=== PATIENT | female | born 1945 | race Caucasian/White ===

== ENCOUNTER 2019-12-30 13:47 | Inpatient (IN) ==
[2019-12-30] MEDS ORDERED: (Dulaglutide [Trulicity] 1.5 MG) SQ SCH (17:15)
[2019-12-30] MEDS ORDERED: *HR* Warfarin 5 MG TABLET PO SCH (19:15)
[2019-12-30] MEDS: *HR* Enoxaparin 100 MG/ML SYRINGE SQ SCH (20:56)
[2019-12-30] MEDS: Cefdinir 300 MG CAPSULE PO SCH (20:57)
[2019-12-30] MEDS: Cholecalciferol (D-3) 1,000 UNIT (25MCG) TABLET PO SCH (20:58)
[2019-12-30] MEDS ORDERED: Insulin DETEMIR 100 UNIT/ML per UNIT SQ ONE (21:00)
[2019-12-30] MEDS: OXcarbazepine 150 MG TABLET PO SCH (21:01)
[2019-12-31] MEDS: *HR* Enoxaparin 100 MG/ML SYRINGE SQ SCH ×2 (05:29→17:11)
[2019-12-31 06:00] LABS: Basophils # 0.1 K/mcL (0.0-0.2); Basophils % 0.6 %; Eosinophils # 0.4 K/mcL (0.0-0.6); Eosinophils % 4.1 %; Hematocrit 32.4 % (35.3-44.9); Hemoglobin 10.4 g/dL (11.5-15.4); Immature Granulocytes % 0.7 % (0-4); Lymphocytes # 2.1 K/mcL (0.6-4.6); Lymphocytes % 23.9 %; Mean Corpuscular HGB Conc 32.1 g/dL (31.6-35.5); Mean Corpuscular Hemoglobin 30.3 pg (28.0-33.3); Mean Corpuscular Volume 94.5 fL (83.0-100.0); Mean Platelet Volume 9.2 fL (9.4-12.4); Monocytes # 0.8 K/mcL (0.0-1.3); Monocytes % 9.6 %; Neutrophils # 5.4 K/mcL (1.6-8.9); Platelet Count 303 K/mcL (140-400); Red Blood Count 3.43 M/mcL (3.82-4.97); Red Cell Distribution Width 15.9 % (11.5-14.5); Segmented Neutrophils % 61.1 %; White Blood Count 8.8 K/mcL (4.3-11.1)
[2019-12-31 06:10] LABS: Albumin 3.5 g/dL (3.5-5.7); Bilirubin,Total 0.4 mg/dL (0.3-1.0); Calcium 9.5 mg/dL (8.6-10.3); Globulin 3.5 g/dL (2.4-3.5); Magnesium 2.3 mg/dL (1.6-2.6); Potassium 4.2 mEq/L (3.5-5.1)
[2019-12-31] MEDS: *HR* Metformin 500 MG TABLET PO SCH (08:19)
[2019-12-31] MEDS: DilTIAZem CD (24hr) 180 MG CAP.ER.24H PO SCH (08:19)
[2019-12-31] MEDS: Aspirin Enteric Coated 81 MG Tablet PO SCH (08:19)
[2019-12-31] MEDS: Multivit/Ca/Min/Fe/FA 1 TAB TABLET PO SCH (08:19)
[2019-12-31] MEDS: Metoprolol XL (24 HR) Succ 50 MG TAB.ER.24H PO SCH (08:20)
[2019-12-31] MEDS: Cefdinir 300 MG CAPSULE PO SCH ×2 (08:20→20:19)
[2019-12-31] MEDS: Spironolactone 25 MG TABLET PO SCH (08:20)
[2019-12-31] MEDS: Cholecalciferol (D-3) 1,000 UNIT (25MCG) TABLET PO SCH ×2 (08:21→20:20)
[2019-12-31] MEDS: OXcarbazepine 150 MG TABLET PO SCH ×2 (08:21→20:19)
[2019-12-31] MEDS ORDERED: INSULIN DEGLUDEC 76 UNIT SQ SCH (09:00)
[2019-12-31] MEDS ORDERED: Dextrose Gel 15 GM/37.5 ML TUBE PO PRN ×2 (09:59)
[2019-12-31] MEDS ORDERED: *HR* Dextrose 50 % in Water (Syg) 50 ML SYRINGE IVP PRN (09:59)
[2019-12-31] MEDS ORDERED: D5% in Water 1,000 ML IVC PRN (09:59)
[2019-12-31] MEDS ORDERED: Insulin DETEMIR 100 UNIT/ML per UNIT SQ ONE (10:15)
[2019-12-31 12:04] LABS: INR 1.7; Prothrombin Time 19.1 Seconds (9.4-12.1)
[2019-12-31] MEDS: Insulin LISPRO 300 UNITS/3 ML VIAL SQ SCH ×3 (13:32→19:30)
[2019-12-31] MEDS ORDERED: Ondansetron ODT 4 MG TAB.RAPDIS SL PRN (13:36)
[2019-12-31] MEDS ORDERED: Warfarin perPT PO PRN (18:00)
[2019-12-31] MEDS ORDERED: *HR* Warfarin 2 MG TABLET PO ONE (18:00)
[2019-12-31] MEDS ORDERED: *HR* Warfarin 3 MG TABLET PO ONE (18:00)
[2019-12-31] MEDS ORDERED: *HR* Warfarin 5 MG TABLET PO SCH (18:00)
[2019-12-31 19:44] LABS: Estimated Average Glucose 217 mg/dl
[2019-12-31] MEDS: Insulin DETEMIR 100 UNIT/ML X5UNITS SQ SCH (20:20)
[2019-12-31] MEDS ORDERED: Insulin DETEMIR 100 UNIT/ML X5UNITS SQ SCH (21:00)
[2020-01-01 05:13] LABS: Hematocrit 32.2 % (35.3-44.9); Mean Corpuscular HGB Conc 31.1 g/dL (31.6-35.5); Mean Corpuscular Hemoglobin 29.9 pg (28.0-33.3); Mean Corpuscular Volume 96.1 fL (83.0-100.0); Mean Platelet Volume 9.2 fL (9.4-12.4); Platelet Count 281 K/mcL (140-400); Red Blood Count 3.35 M/mcL (3.82-4.97); White Blood Count 9.1 K/mcL (4.3-11.1)
[2020-01-01 05:15] LABS: INR 1.9; Prothrombin Time 21.1 Seconds (9.4-12.1)
[2020-01-01 05:25] LABS: Calcium 9.3 mg/dL (8.6-10.3); Potassium 4.6 mEq/L (3.5-5.1)
[2020-01-01 06:06] LABS: Thyroid Stimulating Hormone 2.19 mcIU/mL (0.340-5.600)
[2020-01-01] MEDS: *HR* Enoxaparin 100 MG/ML SYRINGE SQ SCH ×2 (06:12→17:38)
[2020-01-01] MEDS: Insulin DETEMIR 100 UNIT/ML X5UNITS SQ SCH ×2 (08:38→20:49)
[2020-01-01] MEDS: Insulin LISPRO 300 UNITS/3 ML VIAL SQ SCH ×4 (08:38→20:49)
[2020-01-01] MEDS: Aspirin Enteric Coated 81 MG Tablet PO SCH (08:41)
[2020-01-01] MEDS: Cholecalciferol (D-3) 1,000 UNIT (25MCG) TABLET PO SCH ×2 (08:41→20:50)
[2020-01-01] MEDS: *HR* Metformin 500 MG TABLET PO SCH (08:41)
[2020-01-01] MEDS: DilTIAZem CD (24hr) 180 MG CAP.ER.24H PO SCH (08:42)
[2020-01-01] MEDS: Cefdinir 300 MG CAPSULE PO SCH ×2 (08:42→20:49)
[2020-01-01] MEDS: Metoprolol XL (24 HR) Succ 50 MG TAB.ER.24H PO SCH (08:42)
[2020-01-01] MEDS: Multivit/Ca/Min/Fe/FA 1 TAB TABLET PO SCH (08:42)
[2020-01-01] MEDS: Spironolactone 25 MG TABLET PO SCH (08:42)
[2020-01-01] MEDS: OXcarbazepine 150 MG TABLET PO SCH ×2 (08:43→20:49)
[2020-01-01] MEDS ORDERED: *HR* Warfarin 5 MG TABLET PO ONE (18:00)
[2020-01-02] MEDS: *HR* Enoxaparin 100 MG/ML SYRINGE SQ SCH ×2 (05:21→17:17)
[2020-01-02 06:04] LABS: INR 1.9
[2020-01-02] MEDS: Insulin LISPRO 300 UNITS/3 ML VIAL SQ SCH ×4 (08:56→22:07)
[2020-01-02] MEDS: Insulin DETEMIR 100 UNIT/ML X5UNITS SQ SCH ×2 (08:57→22:07)
[2020-01-02] MEDS: OXcarbazepine 150 MG TABLET PO SCH ×2 (08:59→22:06)
[2020-01-02] MEDS: Spironolactone 25 MG TABLET PO SCH (08:59)
[2020-01-02] MEDS: *HR* Metformin 500 MG TABLET PO SCH (09:00)
[2020-01-02] MEDS: Metoprolol XL (24 HR) Succ 50 MG TAB.ER.24H PO SCH (09:00)
[2020-01-02] MEDS: Cholecalciferol (D-3) 1,000 UNIT (25MCG) TABLET PO SCH ×2 (09:00→22:06)
[2020-01-02] MEDS: DilTIAZem CD (24hr) 180 MG CAP.ER.24H PO SCH (09:00)
[2020-01-02] MEDS: Aspirin Enteric Coated 81 MG Tablet PO SCH (09:00)
[2020-01-02] MEDS: Multivit/Ca/Min/Fe/FA 1 TAB TABLET PO SCH (09:00)
[2020-01-02] MEDS: Gabapentin 300 MG CAPSULE PO SCH ×2 (15:08→22:06)
[2020-01-02] MEDS: Bumetanide 1 MG TABLET PO SCH (16:20)
[2020-01-02] MEDS ORDERED: *HR* Warfarin 5 MG TABLET PO ONE (18:00)
[2020-01-03 05:30] LABS: Prothrombin Time 22.9 Seconds (9.4-12.1)
[2020-01-03] MEDS: *HR* Enoxaparin 100 MG/ML SYRINGE SQ SCH (06:14)
[2020-01-03 07:32] VITALS: BP 139/74
[2020-01-03] MEDS: Insulin LISPRO 300 UNITS/3 ML VIAL SQ SCH ×2 (07:43→12:14)
[2020-01-03] MEDS: Aspirin Enteric Coated 81 MG Tablet PO SCH (08:06)
[2020-01-03] MEDS: OXcarbazepine 150 MG TABLET PO SCH (08:06)
[2020-01-03] MEDS: Insulin DETEMIR 100 UNIT/ML X5UNITS SQ SCH (08:06)
[2020-01-03] MEDS: *HR* Metformin 500 MG TABLET PO SCH (08:06)
[2020-01-03] MEDS: Multivit/Ca/Min/Fe/FA 1 TAB TABLET PO SCH (08:07)
[2020-01-03] MEDS: DilTIAZem CD (24hr) 180 MG CAP.ER.24H PO SCH (08:07)
[2020-01-03] MEDS: Metoprolol XL (24 HR) Succ 50 MG TAB.ER.24H PO SCH (08:07)
[2020-01-03] MEDS: Bumetanide 1 MG TABLET PO SCH (08:07)
[2020-01-03] MEDS: Gabapentin 300 MG CAPSULE PO SCH ×2 (08:07→15:54)
[2020-01-03] MEDS: Cholecalciferol (D-3) 1,000 UNIT (25MCG) TABLET PO SCH (08:08)
[2020-01-03 10:50] LABS: Basophils # 0.1 K/mcL (0.0-0.2); Basophils % 0.5 %; Eosinophils # 0.3 K/mcL (0.0-0.6); Eosinophils % 2.5 %; Hematocrit 31.6 % (35.3-44.9); Immature Granulocytes % 0.8 % (0-4); Lymphocytes # 1.9 K/mcL (0.6-4.6); Lymphocytes % 19.2 %; Mean Corpuscular HGB Conc 31.6 g/dL (31.6-35.5); Mean Corpuscular Hemoglobin 29.4 pg (28.0-33.3); Mean Corpuscular Volume 92.9 fL (83.0-100.0); Mean Platelet Volume 9.8 fL (9.4-12.4); Monocytes # 0.9 K/mcL (0.0-1.3); Monocytes % 9.2 %; Neutrophils # 6.7 K/mcL (1.6-8.9); Platelet Count 299 K/mcL (140-400); Red Cell Distribution Width 15.7 % (11.5-14.5); Segmented Neutrophils % 67.8 %; White Blood Count 9.9 K/mcL (4.3-11.1)
[2020-01-03 10:58] LABS: BUN/Creatinine Ratio 16 (6-26); Blood Urea Nitrogen 17 mg/dL (8-23); Calcium 9.4 mg/dL (8.6-10.3); Carbon Dioxide 27 mEq/L (23-29); Chloride 102 mEq/L (98-107); Glucose 228 mg/dL (70-105); Osmolality,Calculated 293 (280-300); Potassium 4.1 mEq/L (3.5-5.1); Sodium 137 mEq/L (136-145); eGFR For African Americans > 60 (> 60); eGFR For Non-African Americans 51 (> 60)
[2020-01-03] MEDS ORDERED: Bumetanide 1 MG TABLET PO SCH (17:00)
[2020-01-03] MEDS ORDERED: *HR* Warfarin 5 MG TABLET PO ONE (18:00)
== END 2020-01-03 16:45 | disposition home health service (06) | DRG 690 ==
LOC: INPGRE 16:44
PROVIDERS: ADMIT Family Medicine; ATTEND Family Medicine